=== PATIENT | male | born 1955 | race Caucasian/White ===

== ENCOUNTER 2017-12-13 15:28 | Emergency (ER) | payer BC ==
[2017-12-13 15:35] VITALS: RESP 18
[2017-12-13] MEDS ORDERED: Magnesium Citrate Oral SOL (300 ml) PO ONE (16:26)
--- NOTE | 2017-12-13 16:28 | C.PDOC ---
History Of Present Illness 62 y/o male presents to the ER complaining of constipation for the past 4 days. Pt reports that he tried to have a bm in the morning but he was not successful but had some flatulence. Denies having nausea, vomiting, abdominal pain, rectal pain, and rectal bleeding. When asked about his diet, pt states that he eats "[place] food." Pt states that he has constipation for the past 2 years. He is also complaining about not sleeping well secondary to stress. Denies having suicidal ideation and homicidal ideation. Of note, daughter of patient translated for him. Time Seen by Provider: 12/13/17 15:55 Chief Complaint (Nursing): GI Problem History Per: Patient History/Exam Limitations: no limitations Onset/Duration Of Symptoms: Days Current Symptoms Are (Timing): Still Present Past Medical History Reviewed: Historical Data, Nursing Documentation, Vital Signs Vital Signs: Last Vital Signs Temp 98.7 F 12/13/17 16:38 Pulse 90 12/13/17 16:38 Resp 18 12/13/17 16:38 BP 95/54 L 12/13/17 16:38 Pulse Ox 98 12/13/17 17:09 - Medical History PMH: No Chronic Diseases Surgical History: Appendectomy Family History: States: No Known Family Hx - Social History Hx Alcohol Use: Yes Hx Substance Use: No - Immunization History Hx Tetanus Toxoid Vaccination: No Review Of Systems Except As Marked, All Systems Reviewed And Found Negative. Gastrointestinal: Positive for: Constipation. Negative for: Nausea, Vomiting, Abdominal Pain, Rectal Pain Psych: Negative for: Suicidal ideation Physical Exam - Physical Exam Appears: Non-toxic, No Acute Distress Skin: Normal Color, Warm, Dry Head: Atraumatic, Normacephalic Eye(s): bilateral: Normal Inspection, EOMI Nose: Normal Oral Mucosa: Moist Neck: Normal ROM, Supple Chest: Symmetrical Cardiovascular: Rhythm Regular Respiratory: Normal Breath Sounds, No Rales, No Rhonchi, No Wheezing Gastrointestinal/Abdominal: Normal Exam, Soft, No Tenderness, No Guarding, No Rebound Extremity: Normal ROM Neurological/Psych: Oriented x3, Normal Speech ED Course And Treatment O2 Sat by Pulse Oximetry: 98 (RA) Pulse Ox Interpretation: Normal - Other Rad X-Ray- Abd. Obs. Series X-Ray: Viewed By Me, Read By Radiologist Interpretation: Date of service: 12/13/2017. PROCEDURE: Radiographs of the chest and abdomen (obstructive series). HISTORY: pain. COMPARISON: No prior. TECHNIQUE: AP radiograph of the chest, with upright and supine radiographs of the abdomen. FINDINGS: CHEST: Lungs: The lungs are well inflated and clear. Cardiovascular: Normal size heart. No pulmonary vascular congestion. Pleura: No pleural fluid. No pneumothorax. Other findings: None. ABDOMEN AND PELVIS: Bowel: There is large amount of stool in the colon and rectum. No evidence of mechanical obstruction. Free air: None. Bones: Unremarkable. Other findings: None. IMPRESSION: Severe constipation. Nonobstructive bowel gas pattern. Clear lungs. Progress Note: X-Ray- Abd. Obs. Series ordered and reviewed. Patient treated with Magnesium Citrate PO. Pt requests to take medication home to have a BM there. Abdomen soft, nontender. TOlerating PO. Afebrile. Pt was also offered glass worker evlauation and outpt referral to [facility], pt refused. Patient has been instructed about diet changes, discharged and instructed to follow up with PMD and CRC in 2-5 days. Disposition - Disposition Referrals: [facility] [Outside] Suleiman Sharma MD [Staff Provider] - Disposition: HOME/ ROUTINE Disposition Time: 16:26 Condition: STABLE Additional Instructions: Increase fiber and water in your diet. Follow up with your primary medical doctor or clinic in 2-5 days for further evaluation. Take medications as prescribed. Return to the emergency department at any time if symptoms persist or worsen. Prescriptions: Polyethylene Glycol 3350 [Miralax] 17 gm PO DAILY #85 gm Instructions: Constipation, Adult (DC) Forms: [employer] (Lao) - Clinical Impression Clinical Impression: Constipation, Anxiety - PA / GAS PROVER / Resident Statement MD/DO has reviewed & agrees with the documentation as recorded. - Scribe Statement The provider has reviewed the documentation as recorded by the Geronimo Curry Provider Attestation All medical record entries made by the Parvizibe were at my direction and personally dictated by me. I have reviewed the chart and agree that the record accurately reflects my personal performance of the history, physical exam, medical decision making, and the department course for this patient. I have also personally directed, reviewed, and agree with the discharge instructions and disposition.
[2017-12-13] MEDS ORDERED: Magnesium Citrate Oral SOL (300 ml) ONE (16:36)
[2017-12-13 16:38] VITALS: BP 95/54; PULSE 90; TEMP 98.7
--- NOTE | 2017-12-13 16:55 | RAD ---
Date of service: 12/13/2017 PROCEDURE: Radiographs of the chest and abdomen (obstructive series) HISTORY: pain COMPARISON: No prior. TECHNIQUE: AP radiograph of the chest, with upright and supine radiographs of the abdomen. FINDINGS: CHEST: Lungs: The lungs are well inflated and clear. Cardiovascular: Normal size heart. No pulmonary vascular congestion. Pleura: No pleural fluid. No pneumothorax. Other findings: None. ABDOMEN AND PELVIS: Bowel: There is large amount of stool in the colon and rectum. No evidence of mechanical obstruction. Free air: None. Bones: Unremarkable. Other findings: None. IMPRESSION: Severe constipation. Nonobstructive bowel gas pattern. Clear lungs.
[2017-12-13 17:01] VITALS: O2SAT 98
== END 2017-12-13 16:38 | disposition home or self-care (01) ==
LOC: C.ER 15:28
DX: K59.00 Constipation, unspecified (principal); F41.9 Anxiety disorder, unspecified